=== PATIENT | female | born 2000 | race Caucasian/White ===

== ENCOUNTER 2024-11-02 07:18 | Emergency (ER) | payer MEDICAID ==
[~2024-11-02] VITALS: Ht 157.5 cm; Wt 53.0 kg
[2024-11-02 07:28] VITALS: O2SAT 100
[2024-11-02 08:44] LABS: BASOPHILS % 0.3 % (0.0-2.0); EOSINOPHILS % 1.1 % (0.0-5.0); HEMATOCRIT. 33.9 % (36.0-48.0); HEMOGLOBIN. 11.6 g/dL (12.0-16.0); LYMPHOCYTES % 20.1 % (20.0-50.0); MEAN CORPUSCULAR HEMOGLOBIN 30.6 pg (28.0-32.0); MEAN CORPUSCULAR HGB CONC 34.3 g/dL (31.0-37.0); MONOCYTES % 6.2 % (2.0-8.0); NEUTROPHILS % 72.3 % (40.0-76.0); PLATELET 267 x1000/uL (130-400); RED BLOOD CELL COUNT 3.81 mill/uL (4.2-5.4); RED CELL DISTRIBUTION WIDTH 13.4 % (11.6-14.6); WHITE BLOOD COUNT 8.7 x1000/uL (4.5-11.0)
[2024-11-02 08:56] LABS: CHLORIDE 117 mEq/L (98-107); SODIUM 143 mEq/L (136-145)
[2024-11-02 08:57] LABS: CARBON DIOXIDE 16 mEq/L (21-32)
[2024-11-02 09:02] LABS: GLUCOSE 64 mg/dL (70-105)
[2024-11-02 09:03] LABS: UREA NITROGEN BLOOD < 5 mg/dL (9-23)
[2024-11-02 09:06] LABS: CREATININE < 0.2 mg/dL (0.6-1.0)
[2024-11-02 09:08] LABS: B-HCG QUANTITATIVE > 1000 mIU/mL (<6); CALCIUM 5.5 mg/dL (8.7-10.4); POTASSIUM 2.4 mEq/L (3.5-5.1)
[2024-11-02] MEDS: POTASSIUM CHLORIDE 20MEQ/PACKET PO ONE (09:21)
[2024-11-02 10:34] LABS: CLARITY URINE CLEAR (CLEAR); COLOR URINE YELLOW (YELLOW); GLUCOSE URINE NEGATIVE (NEGATIVE); KETONES URINE NEGATIVE (NEGATIVE); LEUKOCYTE ESTERASE URINE TRACE (NEGATIVE); NITRITE URINE NEGATIVE (NEGATIVE); OCCULT BLOOD URINE NEGATIVE (NEGATIVE); PH URINE 7.5 (4.5-8.0); PROTEIN URINE NEGATIVE (NEGATIVE); UROBILINOGEN URINE 0.2 E.U./dL (0.2-1.0)
[2024-11-02 11:03] VITALS: BP 105/61; PULSE 96; RESP 17; TEMP 36.3; O2SAT 95
[2024-11-02 11:04] LABS: SQUAMOUS EPITHELIAL CELL URINE 3+ /lpf (RARE/1+)
[2024-11-02 11:06] LABS: RBC URINE NONE SEEN /hpf (0-2)
[2024-11-02 11:08] LABS: BACTERIA URINE 1+
== END 2024-11-02 11:35 | disposition short-term general hospital (02) ==
LOC: ER 07:18
DX: O36.8120 Decreased fetal movements, second trimester, not applicable or unspecified (principal); O99.282 Endocrine, nutritional and metabolic diseases complicating pregnancy, second trimester; E83.51 Hypocalcemia; E87.6 Hypokalemia; O26.892 Other specified pregnancy related conditions, second trimester; R10.2 Pelvic and perineal pain; Z3A.27 27 weeks gestation of pregnancy
CPT/HCPCS: 36415; 76805; 80048; 81003; 82962; 84702; 85025; 86850; 86900; 99291